=== PATIENT | male | born 1980 | race Caucasian/White ===

== ENCOUNTER 2016-12-21 10:53 | Observation (INO) | payer OTHER ==
[~2016-12-21] VITALS: Ht 175.3 cm; Wt 122.5 kg
--- NOTE | ~2016-12-21 | HP ---
PATIENT'S NAME: [facility] AGE: 36 Y [address] ROOM: [id number] [place] [address] LOCATION: [facility] ADMIT DATE: 12/21/2016 History & Physical DISCHARGE DATE: FAMILY PHYSICIAN: PHYSICIAN, NO ATTENDING PHYSICIAN: PAZ WADDELL DATE OF SERVICE: 12/21/2016 CHIEF COMPLAINT: Facial trauma. HISTORY OF PRESENT ILLNESS: The patient is a pleasant 36-year-old male who was helping a friend in loading a bull into a trailer when he was injured by the bull some now. This cause soft tissue injuries to the head as well as him falling to the ground and losing consciousness. He was seen in the ER and a CT scan revealed a left condylar head fracture. He was also found to have a small chin laceration. At this time, he is primarily complaining of pain on the back side of his head. There was some bleeding from the left ear that he notices, but he has no other acute complaints. No personal history of facial trauma. He is healthy and takes no medications. PAST MEDICAL HISTORY: Patient denies. PAST SURGICAL HISTORY: Denies. MEDICATIONS: No home medications. ALLERGIES: NO KNOWN MEDICAL ALLERGIES. SOCIAL HISTORY: He drinks occasional alcohol. No tobacco. FAMILY HISTORY: No chronic ear, nose, or throat conditions. REVIEW OF SYSTEMS: A 10-point review of systems was performed and is positive for tenderness in the posterior head, left ear, chin. There is no complaint of hearing loss, vertigo, or tinnitus. There are no complaints of oral or dental pain. PATIENT'S NAME: [facility] AGE: 36 Y [address] ROOM: [id number] [place], [place] [address] LOCATION: [facility] ADMIT DATE: 12/21/2016 History & Physical DISCHARGE DATE: FAMILY PHYSICIAN: PHYSICIAN, NO ATTENDING PHYSICIAN: PAZ WADDELL PHYSICAL EXAM: VITALS: Temperature 97.8, pulse 80, respirations 12, blood pressure 144/102, is 99% on room air. GENERAL: He is well appearing, no acute distress, lying supine with a C- collar in place. HEENT: His head shows no obvious asymmetries. Face shows good facial function bilaterally without asymmetry. Ears, right external ear and auditory canal are clear. TM unremarkable left. External ears unremarkable. Auditory canal slightly narrowed from anterior to posterior, and there is a laceration on the anterior canal which is oozing slightly this was suctioned free. An Warner-Wick placed, infused with Ciprofloxacin drops. TM was previously viewed is unremarkable. Nose, external nose unremarkable. Intranasal exam shows no nasal obstruction mass, bleeding, or crusting. Oral cavity, mucous members are moist. Tongue midline and mobile. Dentition is in fair repair. The oropharynx is patent. There is an obvious open bite deformity and a slight crossbite on the left side. Normal occlusion is not obtained. A 2.5 to 3 cm chin laceration into the soft tissues is noted. NECK: No palpable lymphadenopathy or masses. SCALP: No obvious scalp lacerations or wounds. RADIOLOGY: A CT scan was personally reviewed. It reveals a fracture through the condylar head and part of the left condylar neck. This is dislocated anteriorly and slightly medially. The remainder of the mandible and facial bones are unremarkable. ASSESSMENT: 1. Left mandible condylar head fracture. 2. Left external auditory canal fracture. 3. Left external auditory canal laceration. 4. Chin laceration. PLAN: We discussed closed reduction versus advanced open reduction repair of this fracture of the condylar head. We discussed that oral maxillofacial surgery be required for the more advanced open surgery and we discussed the pros and cons of both approaches. After discussion, the patient elected for closed approach with maxillomandibular fixation here. We will plan on admit the patient overnight for pain control monitoring, discharge tomorrow morning if doing well, and he will return on for a closed reduction. All his questions were answered. The Warner-Wick will be treated with Ciprofloxacin drops and removed in several days. PATIENT'S NAME: [facility] AGE: 36 Y [address] ROOM: [place] [address] LOCATION: [facility] ADMIT DATE: 12/21/2016 History & Physical DISCHARGE DATE: FAMILY PHYSICIAN: PHYSICIAN, NO ATTENDING PHYSICIAN: PAZ WADDELL MD SASHA MERAZ/darrell /[id number] D: [id number] T: [id number] HISTORY & PHYSICAL
--- NOTE | ~2016-12-21 | ER ---
PATIENT'S NAME: [facility] AGE: 36 Y [address] ROOM: [place] [address] LOCATION: [facility] ADMIT DATE: 12/21/2016 ER/Outpatient Report DISCHARGE DATE: FAMILY PHYSICIAN: PHYSICIAN, NO ATTENDING PHYSICIAN: PAZ WADDELL TIME OF ARRIVAL: 1054 hours. TIME OF EVALUATION: 1054 hours. CHIEF COMPLAINT: Partial trauma, trampled by a bull. HISTORY OF PRESENT ILLNESS: The patient is a 36-year-old male who presents to the emergency department today as a partial trauma after being trampled by a bull. Apparently, he was with a bull who came after him and trampled him. There was loss of consciousness at the scene. It was for a few minutes. The patient does not remember the incident. He does complain of head pain and jaw pain. He is unsure of what happened. The patient reports some mild chest pain. It is sharp. It is on the upper right side. Denies any back pain. No neck pain. He denies any fevers or chills. No nausea or vomiting. No diarrhea or constipation. PAST MEDICAL HISTORY: None. PAST SURGICAL HISTORY: None. SOCIAL HISTORY: The patient denies any tobacco use. Reports 3 to 4 drinks per week. Denies illicit drug use. ALLERGIES: NO KNOWN DRUG ALLERGIES. MEDICATIONS: None. REVIEW OF SYSTEMS: All systems are reviewed by myself and are negative with the exception of those discussed in the HPI and Past Medical History. PATIENT'S NAME: [facility] AGE: 36 Y [address] ROOM: [id number] [place] [address] LOCATION: [facility] ADMIT DATE: 12/21/2016 ER/Outpatient Report DISCHARGE DATE: FAMILY PHYSICIAN: PHYSICIAN, NO ATTENDING PHYSICIAN: PAZ WADDELL PHYSICAL EXAMINATION: VITAL SIGNS: Temperature 97.8, pulse 80, respiratory rate 12, blood pressure 144/102, and pulse oximetry 99%. GENERAL: The patient is a 36-year-old male who appears stated age, well developed, well nourished. HEENT: Head is normocephalic. Does have evidence of trauma with significant swelling noted to the posterior aspect of his head. He has a laceration to the chin. Pupils are equal, round, and reactive to light and accommodating. Extraocular motions are intact. Nares are patent bilaterally. Left external canal with blood in the ear noted. TMs are not able to be visualized. Right TM is without evidence of hemotympanum. There is no Moran sign. No raccoon eyes. The patient does have some decreased sensation to the right side of the nasal bridge on the face. Pain to the left mandible. NECK: Neck is in a cervical collar and supple with superficial abrasion noted, 6 cm. CARDIOVASCULAR: Regular rate and rhythm. No murmurs, rubs, or gallops. LUNGS: Clear to auscultation bilaterally. No wheezes, rales, or rhonchi. ABDOMEN: Soft, nontender, and nondistended. No rebound, rigidity, or guarding. MUSCULOSKELETAL: The patient moves all 4 extremities. SKIN: Warm and dry. There is a 2.6 cm laceration to the chin. There is a 6 cm laceration that is superficial on the neck. The patient has an abrasion to the right anterior chest wall. He has an abrasion to the left knee. LABORATORY AND X-RAY DATA: Labs and x-rays are obtained. Renal panel unremarkable. Alcohol is less than 0.01. CBC is unremarkable except for white blood cell count of 12.2. Coags are normal. CT scan of the cervical spine is negative. CT scan of soft tissue neck shows contusion of the right face and anterior neck. Maxillofacial reveals fracture/dislocation of the left temporomandibular joint. There is a fracture of the bony anterior wall, left external auditory canal. CT scan of the brain shows no acute process. Scalp hematoma. CT scan of the chest, abdomen, and pelvis shows areas of soft tissue injury at the anterior right hemithorax and left lower back. No mediastinal hematoma. No other acute findings are noted. CT scan of the lumbar spine is negative. CT scan of the thoracic spine is negative as well. IMPRESSION: 1. Acute fracture/dislocation of the left temporomandibular joint. 2. Fracture of the bony anterior wall of the left external auditory canal. 3. Status post trauma from bull injury. 4. Critical care time 32 minutes. 5. Initial visit. PATIENT'S NAME: ALISHA LUA [facility] AGE: 36 Y [address] ROOM: [id number] [address] LOCATION: [facility] ADMIT DATE: 12/21/2016 ER/Outpatient Report DISCHARGE DATE: FAMILY PHYSICIAN: PHYSICIAN, JORGE ATTENDING PHYSICIAN: PAZ WADDELL EMERGENCY DEPARTMENT COURSE: The patient was brought back to the examination room. The patient is a partial trauma activation. The patient is immediately seen upon arrival by myself. The patient did have loss of consciousness and was apparently trampled by a bull. CT imaging and laboratory analysis were obtained as described above. The patient was given multiple aliquots of fentanyl IV for pain. I did discuss the results with the radiologist and the description of the fracture/dislocation. I have contacted Dr. Waddell with the Ear, N[facility], [facility] Throat. He has seen and evaluated the patient down here in the emergency department. He will admit the patient for further evaluation, treatment, and management. I have discussed the results with the patient and his who is at the bedside. I have discussed risks and benefits of suture repair of the patient's chin laceration. The patient is agreeable. Lidocaine 1% without epinephrine is utilized for local anesthesia. 5-0 Ethilon is used in simple interrupted fashion to close the wound with good cosmesis and good hemostasis. No complications noted. The patient required a cumulative critical care time of 32 minutes. This did include talking with family, talking with multiple consultants, ordering tests, reviewing tests, as well as close monitoring of the patient with partial trauma and bull trampling. DISPOSITION: The patient is admitted under the care of Dr. Waddell in stable condition. DO NAIDA FRAGA/josuél /[id number] d: 12/21/16 1529 t: 12/22/16 0700, OUTPATIENT REPORT
[2016-12-21 11:16] LABS: BASOPHIL # 0.1 K/uL (0.0-0.2); BASOPHIL % 0.7 %; EOSINOPHIL # 0.4 K/uL (0.0-0.5); EOSINOPHIL % 3.4 %; HEMOGLOBIN 15.9 g/dL (12.0-17.0); IMMATURE GRANULOCYTE # 0.1 K/uL (0.0-0.3); IMMATURE GRANULOCYTE % 0.7 %; LYMPHOCYTE # 2.7 K/uL (0.8-4.0); LYMPHOCYTE % 22.2 %; MCH 29.9 pg (27.0-34.0); MCHC 35.3 gm/dL (32.0-36.5); MCV 84.7 fl (83.0-98.0); MONOCYTE # 0.8 K/uL (0.0-1.0); MONOCYTE % 6.4 %; MPV 10.6 fl (9.4-12.4); NEUTROPHIL # (ANC) 8.1 K/uL (1.4-9.0); NEUTROPHIL % 66.6 %; NRBC % 0 /100WBC (0-0.00); PLATELET COUNT 234 K/uL (150-450); RBC 5.31 M/uL (4.00-6.00); WBC 12.2 K/uL (4.0-11.0)
[2016-12-21 11:32] LABS: ALBUMIN 3.9 gm/dL (3.5-5.0); ANION GAP 12.7 (10.0-19.0); BLOOD UREA NITROGEN 16 mg/dL (6-24); CALCIUM 9.2 mg/dL (8.5-10.5); CHLORIDE 106 mMol/L (96-110); CO2 24 mMol/L (22-32); CREATININE 1.2 mg/dL (0.6-1.3); ESTIMATED GFR (MDRD EQUATION) > 60; POTASSIUM 3.7 mMol/L (3.7-5.1); SODIUM 139 mMol/L (135-145)
[2016-12-21 11:38] LABS: PHOSPHORUS 1.5 mg/dL (2.5-4.9)
[2016-12-21 11:43] LABS: INR - (THERAPEUTIC) 0.98 (0.92-1.07); PROTIME 10.3 SECONDS (9.8-11.4); PTT 22 SECONDS (25-32)
[2016-12-21 15:01] LABS: BILIRUBIN URINE NEGATIVE (NEGATIVE); BLOOD URINE NEGATIVE /UL (NEGATIVE); COLOR URINE YELLOW (YELLOW); GLUCOSE URINE NEGATIVE (NEGATIVE); KETONE URINE NEGATIVE (NEGATIVE); LEUKOCYTES URINE NEGATIVE /UL (NEGATIVE); NITRITE URINE NEGATIVE (NEGATIVE); PROTEIN URINE 30 mg/dL (NEGATIVE); TURBIDITY URINE CLEAR (CLEAR); UROBILINOGEN URINE NORMAL (NORMAL)
[2016-12-21 15:08] LABS: BACTERIA URINE NEGATIVE (NEGATIVE); EPITHELIAL URINE RARE #/HPF (NEGATIVE); HYALINE CAST URINE 0-2 #/LPF (NEGATIVE); MUCUS URINE NEGATIVE (NEGATIVE); RBC URINE RARE #/HPF (NEGATIVE); WBC URINE NEGATIVE #/HPF (NEGATIVE)
--- NOTE | 2016-12-21 16:49 | NUR ---
Patient admitted to floor at 1445 from ER. No significant medical or surgical history. NKA. No home medications. Patient helping friend load a bull in a trailer when bull did not want to go and ran over patient. Patient lost consciousness and came to on way to hospital. Patient from [place] but incident happend here. GCS 15 upon arrival. Numerous abrasions and lacerations. C-collar removed in ER. Numerous CT scans done in ER. R) mandible fracture and L) auditory canal fracture. Family at bedside. Admitted observation status for pain control.
--- NOTE | 2016-12-21 16:56 | NUR ---
Significant Event: Patient A/O X3. Numbness to right side of face. Follows commands. Moves all extremities spontaneously. Moderate strength throughout. VSS. Afebrile. Hypertensive. Room air with sats in the mid 90s. LS clear throughout. Voids per urinal. BS active X4. BM this AM. Numerous skin issues. See charting. L) forearm PIV SLL. 1 assist. Percocet given for pain. Soft diet. No chewing. Family at bedside. Pleasant and cooperative with cares. Follow up: pain control
--- NOTE | 2016-12-22 05:09 | NUR ---
Significant Event: PATIENT IS ALERT AND ORIENTED X3. FOLLOWS COMMANDS. NUMBNESS TO R) SIDE OF FACE. FITZGERALD HAS BEEN GENERALIZED. PERRLA. EQUAL STRONG STRENGTH. NSR 80-90'S. SBP 130-140'S. ROOM AIR-CLEAR. REGULAR DIET-SOFT, NO CHEWING. LAST BM 12/21-ACTIVE X4. UP WITH SBA. L) EAR HAS BLOODY DRAINAGE WITH GAUZE IN PLACE. SCATTERED ABRASIONS. R) NECK AND CHIN LACERATIONS-SUTURED. L) FA PIV-SL'D. TAKES PILLS WHOLE. Follow up: POSSIBLE D/C TO HOME TODAY.
[2016-12-22] MEDS ORDERED: BACTROBAN N1 GM/TUBE TOP (10:19)
[2016-12-22] MEDS ORDERED: CIPROFLOXACIN2.5 ML OTIC (10:23)
[2016-12-22] MEDS ORDERED: COLACE100 MG PO (10:24)
[2016-12-22] MEDS ORDERED: PERCOCET 5-3251 EACH PO (10:26)
--- NOTE | 2016-12-22 14:48 | NUR ---
1115-12/22/16 PATIENT AND PRESENT TO REVIEW DISCHARGE NOTES. PATIENT WAS SENT HOME WITH PERSCRIPTIONS AND INFORMATION ON ALL MEDICATIONS. EDUCATION ALSO SENT ON FACIAL FRACTURES. PATIENT WAS REMINDED TO EAT A SOFT DIET (AND TO CHEW NOTHING). HIS SURGERY IS SCHEDULED FOR WEDNESDAY AND MD MAR HAS INFORMED HIM THAT HIS OFFICE WILL CONTACT PATIENT PRIOR TO SURGERY FOR INSRUCTIONS. PIC WAS D/C'D FROM [facility]. COLLECTED CLOTHES AND PATIENT HAS SUNGLASSES AND PHONE.
--- NOTE | 2016-12-22 14:51 | NUR ---
1137-12/22/16 PATIENT WAS WHEELED DOWN IN WHEELCHAIR BY PAINTER AND DECORATOR APPRENTICE.
[2016-12-24] MEDS ORDERED: LORTAB ELIXI15 ML/UD PO (09:01)
[2016-12-24] MEDS ORDERED: PERIDEX15 ML PO (09:02)
== END 2016-12-22 11:30 | disposition disaster alternative care site (69) ==
LOC: GACC 10:53 → GICU 13:39
PROVIDERS: Emergency Medicine; ADMIT Otolaryngology
DX: S02.612A Fracture of condylar process of left mandible, initial encounter for closed fracture (principal); S01.81XA Laceration without foreign body of other part of head, initial encounter; S09.91XA Unspecified injury of ear, initial encounter; W55.29XA Other contact with cow, initial encounter
CPT/HCPCS: A9270; G0378; G0390; G0480; J3010; J7030; Q9967

== ENCOUNTER → 2016-12-21 | Outpatient (CLI) | payer OTHER ==
[~2016-12-21] MED LIST: BACTROBAN N1 GM/TUBE TOP; CIPROFLOXACIN2.5 ML OTIC; COLACE100 MG PO; LORTAB ELIXI15 ML/UD PO; PERCOCET 5-3251 EACH PO; PERIDEX15 ML PO
== END | disposition disaster alternative care site (69) ==
LOC: GAMB 10:34
DX: S06.9X9A Unspecified intracranial injury with loss of consciousness of unspecified duration, initial encounter (principal); S09.93XA Unspecified injury of face, initial encounter; S11.81XA Laceration without foreign body of other specified part of neck, initial encounter; S00.83XA Contusion of other part of head, initial encounter; R51 Headache; R68.84 Jaw pain; R41.82 Altered mental status, unspecified; X58.XXXA Exposure to other specified factors, initial encounter

== ENCOUNTER → 2016-12-24 | Day surgery (SDC) | payer OTHER ==
[~2016-12-24] VITALS: Ht 175.3 cm; Wt 121.0 kg
--- NOTE | ~2016-12-24 | OR ---
PATIENT'S NAME: ALISHA LUA [facility] AGE: 36 Y [address] ROOM: [place] [address] LOCATION: [facility] [place] ADMIT DATE: 12/24/2016 OR/Procedure Report DISCHARGE DATE: FAMILY PHYSICIAN: PHYSICIAN, NO ATTENDING PHYSICIAN: PAZ WADDELL SURGEON: Paz Waddell MD FUR FARMER: Iam Patrick. DATE OF PROCEDURE: 12/24/2016 PREOPERATIVE DIAGNOSIS: Left mandibular condyle fracture. POSTOPERATIVE DIAGNOSIS: Left mandibular condyle fracture. PROCEDURE: Hybrid maxillomandibular fixation. ANESTHESIA: General nasotracheal. COMPLICATIONS: None. BLOOD LOSS: 2 mL. FINDINGS: Excellent occlusion after placement of IMF. SPECIMENS: None. INDICATION: The patient is a pleasant 36-year-old male, who suffered an accident related to a bull this past weekend. He was identified to have a left mandibular condyle fracture with anteromedial dislocation of the head of the condyle. We discussed conservative management with maxillomandibular fixation, and the patient provided informed consent. DESCRIPTION OF PROCEDURE: The patient was brought from the preoperative area to the operating suite, placed on the table in supine position. All pressure points were padded. Time-out was performed correctly identifying the patient and the procedure. General nasotracheal anesthesia was initiated. The patient was prepped and draped in a clean fashion. The oral cavity was exposed. The hybrid MMF bar was chosen and placed over the maxillary dentition. This was screwed into place with a combination of 6 and 8 mm screws. This was performed once again on the mandible. The teeth were brought into the patient's wainwright occlusion as noted by the wear facets on the teeth. 24-gauge wires were used bilaterally to provide maxillomandibular fixation. This reduced the dentition nicely. The oral cavity was cleansed with Peridex, which was suctioned clean, and the patient was returned to the care of Anesthesia for extubation and transferred to the recovery room in stable condition. PATIENT'S NAME: ALISHA LUA [facility] AGE: 36 Y [address] ROOM: [place] [address] LOCATION: [facility] [place] ADMIT DATE: 12/24/2016 OR/Procedure Report DISCHARGE DATE: FAMILY PHYSICIAN: PHYSICIAN, NO ATTENDING PHYSICIAN: PAZ WADDELL MD SASHA MERAZ/darrell /[id number] d: 12/24/16 1009 t: 01/08/17 1243, OPERATIVE SUMMARY
== END | disposition disaster alternative care site (69) ==
LOC: GPOC 12-23 14:00 → GSDC 05:53 → GPOC 06:00 → GSDC 06:00 → GPOC 14:00
PROC: 0NHV34Z Insertion of Internal Fixation Device into Left Mandible, Percutaneous Approach (ICD-10-PCS; principal; 2016-12-24)
DX: S02.612A Fracture of condylar process of left mandible, initial encounter for closed fracture (principal); S01.81XA Laceration without foreign body of other part of head, initial encounter; S09.91XA Unspecified injury of ear, initial encounter; Z98.890 Other specified postprocedural states; W55.29XA Other contact with cow, initial encounter
CPT/HCPCS: C1713; J0690; J2001; J3010; J7120